=== PATIENT | female | born 1950 | race American Indian/Alaskan Native ===

== ENCOUNTER 2018-07-24 15:48 | Oncology outpatient (ONC) | payer MEDICARE, OTHER, SELFPAY ==
[2018-07-24 16:09] LABS: Add Manual Diff / Slide Review NO; Basophils Percent Auto 1.3 % (0-2); Eosinophils Percent Auto 5.5 % (2-4); Hematocrit 40.7 % (36-46); Hemoglobin 14.1 g/dL (12.0-16.0); Lymphocytes Percent Auto 25.5 % (25-40); Mean Corpuscular HGB Conc 34.6 % (30-36); Mean Corpuscular Hemoglobin 29.9 PG (26-34); Mean Corpuscular Volume 86.4 fL (80-100); Monocytes Percent Auto 7.5 % (3-14); Neutrophils Absolute Auto 4500 /uL (3000-5900); Neutrophils Percent Auto 60.2 % (50-75); Platelet Count 333 X10^3/uL (150-400); Red Blood Cell Count 4.71 X10^6/uL (4.0-5.2); Red Cell Distribution Width 13.6 % (11.6-14.8); White Blood Cell Count 7.5 X10^3/uL (4.5-11.0)
[2018-07-24 16:27] LABS: Alanine Aminotransferase 20 IU/L (9-52); Albumin 4.1 g/dL (3.5-5.0); Albumin Globulin Ratio 1.3 (1.0-2.8); Alkaline Phosphatase 91 U/L (38-126); Aspartate Aminotransferase 23 IU/L (14-36); BUN Creatinine Ratio 18.6 (6-22); Bilirubin Total 0.3 mg/dL (0.2-1.3); Blood Urea Nitrogen 13 mg/dL (7-17); Calcium 9.3 mg/dL (8.4-10.2); Carbon Dioxide 27 mmol/L (22-32); Chloride 106 mmol/L (98-107); Estimated Glomerular Filt Rate > 60.0 mL/min (>60); Globulin 3.1 g/dL (1.7-4.1); Glucose 116 mg/dL (80-110); HEMOLYSIS < 15 (0-50); Potassium 3.6 mmol/L (3.4-5.1); Sodium 144 mmol/L (137-145); Total Protein 7.2 g/dL (6.3-8.2)
[2018-07-24 16:45] VITALS: BP 158/85; PULSE 76; RESP 18; TEMP 36.8
--- NOTE | 2018-07-24 17:31 | ONC.PN ---
PN -Subjective Interval history: Chief complaint 68-year-old female triple positive right breast cancer History of present illness This is my 1st time encounter with Mrs. Jessie Graham, I have reviewed all the medical records both in chart and electronic medical records. And I will summarize her medical history as follows. In 2008, patient noted a palpable left breast mass at 12 o'clock and 1 o'clock. Mammogram on 03/19/2009 showed multiple parenchymal nodules in the left upper central anterior breast, largest 1.7 cm. Ultrasound study on 04/15/2009 showed multiple hypoechoic and solid nodules extending from the retroareolar region to the 11:30 axis 3 cm from the nipple. The largest nodule 2 cm from the nipple was 1.6 x 1.5 x 1.3 cm, the next largest was 1.1 x 0.9 x 1.2 in the subareolar region. Needle biopsy was highly suggestive of infiltrative ductal carcinoma. The axilla was clinically negative. On 05/05/2009, patient underwent left breast lumpectomy and left axillary lymph node dissection. The mass was found to be located from 12:00 to 3:00. Surgical pathology showed invasive moderately differentiated ductal carcinoma and multifocal ductal carcinoma in-situ cribriform and solid types. The tumor consists of one multilobulated mass connected by foci of ductal carcinoma in-situ. And the breast cancer was [place] grade 2/3, maximum size of invasive component 2.5 cm, maximum size of entire tumor was 6.5 cm, without definite vascular or lymphatic invasion, with tumor focally extending to the retroareolar biopsy margin with all other margins negative for malignancy. The cancer cells were positive for estrogen and progesterone receptor and positive for overexpression of her to undergo protein product with intermediate Ki 67 of 48%. It was staged pT2 pN0 Mx. Chemotherapy and radiation treatment were discussed with the patient. However due to family difficulties that her mother had with breast cancer after receiving chemotherapy, patient herself refused to undergo further management. During follow-up she was found to have a local recurrence in the left breast confirmed by needle core biopsy. She then underwent a bone scan which was negative and a CT scan of the chest, abdomen, and pelvis which was negative. The axilla clinically was negative. She herself elected for bilateral mastectomy. On 03/02/2010, patient underwent bilateral mastectomy. The final pathology showed that the left breast invasive ductal carcinoma 1.5 cm grade 3/3 with high-grade ductal carcinoma in-situ. Or and the staging was pT1c NX MX. Right breast was negative for malignancy. It was presumed but not proven that the recurrent breast cancer was ER/AK positive and Her2 positive. The plan at that time was adjuvant weekly doxorubicin 24mg/m2 iv with daily oral cyclophosphamide 60 mg/m2 followed for 12 weeks by weekly paclitaxel 80 mg/m2 for 12 weeks with Herceptin and then endocrine therapy. In April 2010, she was started on weekly doxorubicin 24mg/m2 iv with daily oral cyclophosphamide 60 mg/m2. She was able to completed 12 weeks of AC. Thereafter, patient refused to continue the chemotherapy. Therefore, it was planned to proceed to Herceptin and Arimidex. Unfortunately, her cardiac ejection fraction was only 46.6%, and was 61.25. So it was decided to hold Herceptin. She was then proceeding to Arimidex from 07/27/2010 through 11/02/2010. And she elected to discontinue all the therapy due to poor tolerance. Later, after discussion, she decided to go back on hormone blockade and has been on Letrazole since 09/2012. Clinically, patient has been doing well. Patient tolerated the letrozole extremely well. Patient denies any musculoskeletal pain denies any shortness of breath or chest pain. Denies any abdominal pain diarrhea or constipation. Patient presents here today for re-filling of letrozole. 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 And - Patient Self-Reported Symptoms SR respiratory issues: Cough, Mucous - Additional ROS All systems PM: reviewed and no additional remarkable complaints except as stated Home Medications and Allergies Home Medications Medication Instructions Recorded Confirmed Type [tylenol] 650 mg PRN #0 05/13/13 History alprazolam [Xanax XR] 0.5 mg PO PRN #0 05/13/13 History carvedilol [Coreg] 3.125 mg PO QDAY #0 05/13/13 History lisinopril 2.5 mg PO QDAY #0 05/13/13 History venlafaxine [Effexor XR] 75 mg PO QDAY #0 05/13/13 History zolpidem [Ambien] 10 mg PO HS #0 05/13/13 History letrozole [Femara] 2.5 mg PO QDAY #90 tab 07/24/18 Rx Allergies Allergy/AdvReac Type Severity Reaction Status Date / Time INGREDIENT: NKDA - NO KNOWN Allergy Unknown Uncoded 02/05/18 12:53 DRUG ALLERGIES Exam Vital signs: Last Vital Signs Temp 98.2 F 07/24/18 16:45 Pulse 76 07/24/18 16:45 Resp 18 07/24/18 16:45 BP 158/85 H 07/24/18 16:45 Narrative: ECO Constitutional: Well developed, well nourished, not in any acute respiratory distress, average body habitus, well groomed, pleasant and cooperative. HEENT: Normocephalic atraumatic. Extraocular muscle movement intact. Pupils are round, equal and reactive to light and accommodations. Anicteric sclera. No hearing difficulty; Oral mucus membrane moist and without ulcers. Neck: Supple, symmetrical, and tracheal midline; No palpable thyromegaly and no palpable lymph nodes. Respiratory: No use of accessory muscles. Clear to auscultation, and no wheezes or rales or rubs. Cardiovascular: Regular rate and rhythm, S1 and S2 normal, no murmurs gallops or rubs. No JVD. No pitting edema of lower extremities. Abdomen: Soft, nontender, non-distended, bowel sounds normal, no palpable organomegaly, no hernia, no palpable masses. Lower extremities: No palpable pedal edema. Lymphatic: no palpable lymph nodes in the neck, axillae, or groins. Musculoskeletal: normal gait and station, no clubbing, no cyanosis, no pitting edema. Skin: no rashes, no ulcers, no petechiae Neurological: Awake and alert and oriented x3. CN II-XII grossly intact. No focal motor or sensory deficit. Psychiatric: Good judgment, good insight, normal affect, normal thought process, cooperative, no depression, no anxiety. Breast exam: Both breasts were absent. The surgical wound has healed completely. No palpable nodules noted. No palpable lymph nodes in the axilla bilaterally. All physical examinations were chaperoned. Results - Labs Laboratory Last Values WBC 7.5 X10^3/uL (4.5-11.0) 07/24/18 15:58 RBC 4.71 X10^6/uL (4.0-5.2) 07/24/18 15:58 Hgb 14.1 g/dL (12.0-16.0) 07/24/18 15:58 Hct 40.7 % (36-46) 07/24/18 15:58 MCV 86.4 fL (80-100) 07/24/18 15:58 MCH 29.9 PG (26-34) 07/24/18 15:58 MCHC 34.6 % (30-36) 07/24/18 15:58 RDW 13.6 % (11.6-14.8) 07/24/18 15:58 Plt Count 333 X10^3/uL (150-400) 07/24/18 15:58 Neut % (Auto) 60.2 % (50-75) 07/24/18 15:58 Lymph % (Auto) 25.5 % (25-40) 07/24/18 15:58 [place] % (Auto) 7.5 % (3-14) 07/24/18 15:58 Eos % (Auto) 5.5 % (2-4) H 07/24/18 15:58 Baso % (Auto) 1.3 % (0-2) 07/24/18 15:58 Neut # (Auto) 4500 /uL ([id number]) 07/24/18 15:58 Sodium 144 mmol/L (137-145) 07/24/18 15:58 Potassium 3.6 mmol/L (3.4-5.1) 07/24/18 15:58 Chloride 106 mmol/L (98-107) 07/24/18 15:58 Carbon Dioxide 27 mmol/L (22-32) 07/24/18 15:58 BUN 13 mg/dL (7-17) 07/24/18 15:58 Creatinine 0.70 mg/dL (0.52-1.04) 07/24/18 15:58 Estimated GFR > 60.0 mL/min (>60) 07/24/18 15:58 BUN/Creatinine Ratio 18.6 (6-22) 07/24/18 15:58 Glucose 116 mg/dL (80-110) H 07/24/18 15:58 Calcium 9.3 mg/dL (8.4-10.2) 07/24/18 15:58 Total Bilirubin 0.3 mg/dL (0.2-1.3) 07/24/18 15:58 AST 23 IU/L (14-36) 07/24/18 15:58 ALT 20 IU/L (9-52) 07/24/18 15:58 Alkaline Phosphatase 91 U/L (38-126) 07/24/18 15:58 Total Protein 7.2 g/dL (6.3-8.2) 07/24/18 15:58 Albumin 4.1 g/dL (3.5-5.0) 07/24/18 15:58 Globulin 3.1 g/dL (1.7-4.1) 07/24/18 15:58 Albumin/Globulin Ratio 1.3 (1.0-2.8) 07/24/18 15:58 - Imaging Additional studies: Procedures HEAD SOFT TISS X-RAY NEC (03/30/10) INSERTION OF TOTALLY IMPLANTABLE VASC ACCESS DEVIC (03/30/10) Assessment and Plan (1) Breast cancer, left Up until now patient has received almost 8 years of endocrine therapy after patient completed a partial chemotherapy. Patient had a diagnosis of triple positive left breast cancer. Patient completed only weekly Adriamycin and Cytoxan for about 12 cycles without planned paclitaxel and Herceptin due to decreased cardiac ejection fraction. Today patient came here for refill of letrozole. Patient does not have any new complaints. Patient has tolerated the letrozole extremely well. I talked with the patient given her history of high risk left breast cancer, incomplete adjuvant chemotherapy especially no use of Herceptin, I would recommend that we continue current endocrine therapy for a total of 10 years. Patient voiced understanding. I will have the patient come back in 6 months for follow-up visit.
--- NOTE | 2018-07-24 18:30 | P.PNONC_ITS ---
PN -Subjective Interval history: Chief complaint 68-year-old female triple positive right breast cancer History of present illness This is my 1st time encounter with Mrs. Jessie Graham, I have reviewed all the medical records both in chart and electronic medical records. And I will summarize her medical history as follows. In 2008, patient noted a palpable left breast mass at 12 o'clock and 1 o'clock. Mammogram on 03/19/2009 showed multiple parenchymal nodules in the left upper central anterior breast, largest 1.7 cm. Ultrasound study on 04/15/2009 showed multiple hypoechoic and solid nodules extending from the retroareolar region to the 11:30 axis 3 cm from the nipple. The largest nodule 2 cm from the nipple was 1.6 x 1.5 x 1.3 cm, the next largest was 1.1 x 0.9 x 1.2 in the subareolar region. Needle biopsy was highly suggestive of infiltrative ductal carcinoma. The axilla was clinically negative. On 05/05/2009, patient underwent left breast lumpectomy and left axillary lymph node dissection. The mass was found to be located from 12:00 to 3:00. Surgical pathology showed invasive moderately differentiated ductal carcinoma and multifocal ductal carcinoma in-situ cribriform and solid types. The tumor consists of one multilobulated mass connected by foci of ductal carcinoma in- situ. And the breast cancer was [place] grade 2/3, maximum size of invasive component 2.5 cm, maximum size of entire tumor was 6.5 cm, without definite vascular or lymphatic invasion, with tumor focally extending to the retroareolar biopsy margin with all other margins negative for malignancy. The cancer cells were positive for estrogen and progesterone receptor and positive for overexpression of her to undergo protein product with intermediate Ki 67 of 48%. It was staged pT2 pN0 Mx. Chemotherapy and radiation treatment were discussed with the patient. However due to family difficulties that her mother had with breast cancer after receiving chemotherapy, patient herself refused to undergo further management. During follow-up she was found to have a local recurrence in the left breast confirmed by needle core biopsy. She then underwent a bone scan which was negative and a CT scan of the chest, abdomen, and pelvis which was negative. The axilla clinically was negative. She herself elected for bilateral mastectomy. On 03/02/2010, patient underwent bilateral mastectomy. The final pathology showed that the left breast invasive ductal carcinoma 1.5 cm grade 3/ 3 with high-grade ductal carcinoma in-situ. Or and the staging was pT1c NX MX. Right breast was negative for malignancy. It was presumed but not proven that the recurrent breast cancer was ER/UT positive and Her2 positive. The plan at that time was adjuvant weekly doxorubicin 24mg/m2 iv with daily oral cyclophosphamide 60 mg/m2 followed for 12 weeks by weekly paclitaxel 80 mg/ m2 for 12 weeks with Herceptin and then endocrine therapy. In April 2010, she was started on weekly doxorubicin 24mg/m2 iv with daily oral cyclophosphamide 60 mg/m2. She was able to completed 12 weeks of AC. Thereafter, patient refused to continue the chemotherapy. Therefore, it was planned to proceed to Herceptin and Arimidex. Unfortunately, her cardiac ejection fraction was only 46.6%, and was 61.25. So it was decided to hold Herceptin. She was then proceeding to Arimidex from 07/27/2010 through 11/02/2010. And she elected to discontinue all the therapy due to poor tolerance. Later, after discussion, she decided to go back on hormone blockade and has been on Letrazole since 09/2012. Clinically, patient has been doing well. Patient tolerated the letrozole extremely well. Patient denies any musculoskeletal pain denies any shortness of breath or chest pain. Denies any abdominal pain diarrhea or constipation. Patient presents here today for re-filling of letrozole. 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 And - Patient Self-Reported Symptoms SR respiratory issues: Cough, Mucous - Additional ROS All systems PM: reviewed and no additional remarkable complaints except as stated Home Medications and Allergies Home Medications Medication Instructions Recorded Confirmed Type [tylenol] 650 mg PRN #0 05/13/13 History alprazolam [Xanax XR] 0.5 mg PO PRN #0 05/13/13 History carvedilol [Coreg] 3.125 mg PO QDAY #0 05/13/13 History lisinopril 2.5 mg PO QDAY #0 05/13/13 History venlafaxine [Effexor XR] 75 mg PO QDAY #0 05/13/13 History zolpidem [Ambien] 10 mg PO HS #0 05/13/13 History letrozole [Femara] 2.5 mg PO QDAY #90 tab 07/24/18 Rx Allergies Allergy/AdvReac Type Severity Reaction Status Date / Time INGREDIENT: NKDA - NO KNOWN Allergy Unknown Uncoded 02/05/18 12:53 DRUG ALLERGIES Exam Vital signs: Last Vital Signs Temp 98.2 F 07/24/18 16:45 Pulse 76 07/24/18 16:45 Resp 18 07/24/18 16:45 BP 158/85 H 07/24/18 16:45 Narrative: ECO Constitutional: Well developed, well nourished, not in any acute respiratory distress, average body habitus, well groomed, pleasant and cooperative. HEENT: Normocephalic atraumatic. Extraocular muscle movement intact. Pupils are round, equal and reactive to light and accommodations. Anicteric sclera. No hearing difficulty; Oral mucus membrane moist and without ulcers. Neck: Supple, symmetrical, and tracheal midline; No palpable thyromegaly and no palpable lymph nodes. Respiratory: No use of accessory muscles. Clear to auscultation, and no wheezes or rales or rubs. Cardiovascular: Regular rate and rhythm, S1 and S2 normal, no murmurs gallops or rubs. No JVD. No pitting edema of lower extremities. Abdomen: Soft, nontender, non-distended, bowel sounds normal, no palpable organomegaly, no hernia, no palpable masses. Lower extremities: No palpable pedal edema. Lymphatic: no palpable lymph nodes in the neck, axillae, or groins. Musculoskeletal: normal gait and station, no clubbing, no cyanosis, no pitting edema. Skin: no rashes, no ulcers, no petechiae Neurological: Awake and alert and oriented x3. CN II-XII grossly intact. No focal motor or sensory deficit. Psychiatric: Good judgment, good insight, normal affect, normal thought process , cooperative, no depression, no anxiety. Breast exam: Both breasts were absent. The surgical wound has healed completely. No palpable nodules noted. No palpable lymph nodes in the axilla bilaterally. All physical examinations were chaperoned. Results - Labs Laboratory Last Values WBC 7.5 X10^3/uL (4.5-11.0) 07/24/18 15:58 RBC 4.71 X10^6/uL (4.0-5.2) 07/24/18 15:58 Hgb 14.1 g/dL (12.0-16.0) 07/24/18 15:58 Hct 40.7 % (36-46) 07/24/18 15:58 MCV 86.4 fL (80-100) 07/24/18 15:58 MCH 29.9 PG (26-34) 07/24/18 15:58 MCHC 34.6 % (30-36) 07/24/18 15:58 RDW 13.6 % (11.6-14.8) 07/24/18 15:58 Plt Count 333 X10^3/uL (150-400) 07/24/18 15:58 Neut % (Auto) 60.2 % (50-75) 07/24/18 15:58 Lymph % (Auto) 25.5 % (25-40) 07/24/18 15:58 [place] % (Auto) 7.5 % (3-14) 07/24/18 15:58 Eos % (Auto) 5.5 % (2-4) H 07/24/18 15:58 Baso % (Auto) 1.3 % (0-2) 07/24/18 15:58 Neut # (Auto) 4500 /uL ([id number]) 07/24/18 15:58 Sodium 144 mmol/L (137-145) 07/24/18 15:58 Potassium 3.6 mmol/L (3.4-5.1) 07/24/18 15:58 Chloride 106 mmol/L (98-107) 07/24/18 15:58 Carbon Dioxide 27 mmol/L (22-32) 07/24/18 15:58 BUN 13 mg/dL (7-17) 07/24/18 15:58 Creatinine 0.70 mg/dL (0.52-1.04) 07/24/18 15:58 Estimated GFR > 60.0 mL/min (>60) 07/24/18 15:58 BUN/Creatinine Ratio 18.6 (6-22) 07/24/18 15:58 Glucose 116 mg/dL (80-110) H 07/24/18 15:58 Calcium 9.3 mg/dL (8.4-10.2) 07/24/18 15:58 Total Bilirubin 0.3 mg/dL (0.2-1.3) 07/24/18 15:58 AST 23 IU/L (14-36) 07/24/18 15:58 ALT 20 IU/L (9-52) 07/24/18 15:58 Alkaline Phosphatase 91 U/L (38-126) 07/24/18 15:58 Total Protein 7.2 g/dL (6.3-8.2) 07/24/18 15:58 Albumin 4.1 g/dL (3.5-5.0) 07/24/18 15:58 Globulin 3.1 g/dL (1.7-4.1) 07/24/18 15:58 Albumin/Globulin Ratio 1.3 (1.0-2.8) 07/24/18 15:58 - Imaging Additional studies: Procedures HEAD SOFT TISS X-RAY NEC (03/30/10) INSERTION OF TOTALLY IMPLANTABLE VASC ACCESS DEVIC (03/30/10) Assessment and Plan (1) Breast cancer, left Up until now patient has received almost 8 years of endocrine therapy after patient completed a partial chemotherapy. Patient had a diagnosis of triple positive left breast cancer. Patient completed only weekly Adriamycin and Cytoxan for about 12 cycles without planned paclitaxel and Herceptin due to decreased cardiac ejection fraction. Today patient came here for refill of letrozole. Patient does not have any new complaints. Patient has tolerated the letrozole extremely well. I talked with the patient given her history of high risk left breast cancer, incomplete adjuvant chemotherapy especially no use of Herceptin, I would recommend that we continue current endocrine therapy for a total of 10 years. Patient voiced understanding. I will have the patient come back in 6 months for follow-up visit.
[2018-07-28 08:14] LABS: Cancer Antigen 27.29 < 8 U/mL (< 38)
== END 2018-07-25 12:00 ==
PROVIDERS: PCP Family Medicine; Visit Provider Internal Medicine Hematology & Oncology
DX: C50.912 Malignant neoplasm of unspecified site of left female breast (principal); Z17.0 Estrogen receptor positive status [ER+]; Z79.811 Long term (current) use of aromatase inhibitors; Z86.001 Personal history of in-situ neoplasm of cervix uteri
CPT/HCPCS: 36415; 80053; 85025; 86300; 99215

== ENCOUNTER → 2019-01-22 17:42 | Outpatient (CLI) | payer MEDICARE, OTHER, SELFPAY ==
[2019-01-22 18:14] LABS: Alanine Aminotransferase 28 IU/L (9-52); Albumin 4.2 g/dL (3.5-5.0); Albumin Globulin Ratio 1.4 (1.0-2.8); Alkaline Phosphatase 117 U/L (38-126); Aspartate Aminotransferase 24 IU/L (14-36); BUN Creatinine Ratio 16.3 (6-22); Bilirubin Total 0.3 mg/dL (0.2-1.3); Blood Urea Nitrogen 13 mg/dL (7-17); Calcium 9.5 mg/dL (8.4-10.2); Carbon Dioxide 30 mmol/L (22-32); Chloride 102 mmol/L (98-107); Estimated Glomerular Filt Rate > 60.0 mL/min (>60); Glucose 118 mg/dL (80-110); HEMOLYSIS < 15 (0-50); Potassium 3.9 mmol/L (3.4-5.1); Sodium 142 mmol/L (137-145); Total Protein 7.2 g/dL (6.3-8.2)
[2019-01-22 19:48] LABS: Hematocrit 42.6 % (36-46); Lymphocytes Percent Auto 22.5 % (25-40); Mean Corpuscular HGB Conc 32.9 % (30-36); Mean Corpuscular Hemoglobin 29.2 PG (26-34); Mean Corpuscular Volume 88.7 fL (80-100); Neutrophils Percent Auto 64.7 % (50-75); Platelet Count 374 X10^3/uL (150-400); Red Cell Distribution Width 13.3 % (11.6-14.8); White Blood Cell Count 9.2 X10^3/uL (4.5-11.0)
[2019-01-22 19:49] LABS: Add Manual Diff / Slide Review NO; Basophils Absolute Auto 100 /uL (0-100); Basophils Percent Auto 0.5 % (0-2); Eosinophils Absolute Auto 500 /uL (0-450); Eosinophils Percent Auto 5.6 % (2-4); Lymphocytes Absolute Auto 2100 /uL (1100-4500); Monocytes Absolute Auto 600 /uL (0-900); Monocytes Percent Auto 6.7 % (3-14); Neutrophils Absolute Auto 6000 /uL (1500-7000)
[2019-01-27 16:08] LABS: Cancer Antigen 27.29 < 8 U/mL (< 38)
== END ==
PROVIDERS: PCP Family Medicine; Visit Provider Internal Medicine Hematology & Oncology
DX: C50.912 Malignant neoplasm of unspecified site of left female breast (principal)
CPT/HCPCS: 36415; 80053; 85025; 86300

== ENCOUNTER → 2019-02-06 14:57 | Outpatient (CLI) | payer MEDICARE, OTHER, SELFPAY | PROVIDERS: PCP Family Medicine; Visit Provider Internal Medicine Hematology & Oncology | DX: C50.912 Malignant neoplasm of unspecified site of left female breast (principal) ==

== ENCOUNTER → 2019-08-20 15:00 | Oncology outpatient (ONC) | payer MEDICARE, OTHER, SELFPAY ==
[2019-02-02 16:37] VITALS: BP 142/99; PULSE 76; RESP 18; TEMP 36.7; O2SAT 96
--- NOTE | 2019-02-02 16:40 | ONC.PN ---
PN -Subjective Interval history: 68-year-old white female with history of left breast multifocal triple positive breast cancer diagnosed in 2008 status post lumpectomy without adjuvant radio therapy or chemotherapy. Patient developed left breast local recurrence in 2009 and opted for bilateral mastectomy. Patient completed adjuvant Adriamycin and Cytoxan but not paclitaxel. Due to sub-optimal cardiac ejection fraction, patient did not receive Herceptin. Patient has been on letrozole therapy for almost 8 years. Patient presents here today for scheduled follow-up visit. Patient reports fine good energy. Good appetite. No CP, and no SOB. NO N/V. Due to lactose intolerance, she has had diarrhea after eating ice cream. No blood in the stool or urine. No bone pain. Her weight has increased by about 10 lb. She is now Letrazole 2.5 mg daily. No hot flashes. She is also taking D3, B12 and Zinc. She had BMD scan about 5 years ago. - Additional ROS All systems PM: reviewed and no additional remarkable complaints except as stated Home Medications and Allergies Home Medications Medication Instructions Recorded Confirmed Type [tylenol] 650 mg PRN #0 05/13/13 History alprazolam [Xanax XR] 0.5 mg PO PRN #0 05/13/13 History carvedilol [Coreg] 3.125 mg PO QDAY #0 05/13/13 History lisinopril 2.5 mg PO QDAY #0 05/13/13 History venlafaxine [Effexor XR] 75 mg PO QDAY #0 05/13/13 History zolpidem [Ambien] 10 mg PO HS #0 05/13/13 History letrozole [Femara] 2.5 mg PO QDAY #90 tab 07/24/18 Rx Allergies Allergy/AdvReac Type Severity Reaction Status Date / Time INGREDIENT: NKDA - NO KNOWN Allergy Unknown Uncoded 02/05/18 12:53 DRUG ALLERGIES Exam Vital signs: Vital Signs Temp Pulse Resp BP Pulse Ox 02/02/19 16:37 98.1 F 76 18 142/99 H 96 Intake and Output 02/02/19 02/02/19 02/02/19 07:59 15:59 23:59 Other: Weight 87.3 kg Patient Weight 02/02/19 23:59 Weight 87.3 kg ECOG 1 Narrative: Gen: WD, thin, NAD, pleasant and cooperative, came in by herself. HEENT: NCAT, EOMI, PERRLA, anicteric sclera. Neck: Supple, No palpable thyromegaly or lymphadenopathy. Respiratory: CTAB, no wheezes audible. No JVD Cardiovascular: RRR, S1 and S2 normal, no M/G/R. Abdomen: Soft, NTND, BS normal, no palpable organomegaly Extremities: No LE pitting edema. Lymphatic: no palpable lymph nodes in the neck, axillae, or groins. Neurological: AOx3, CN II-XII grossly intact. No focal motor or sensory deficit. Psychiatric: Good judgment and insight; normal affect; normal thought process; cooperative, no depression, no anxiety. Breast Exams: absent from previous mastecotmy. No palpable masses or nodules in the chest and no palpable lymph nodes in the axilla bilaterally. All physical examinations were chaperoned Results - Labs I reviewed all the lab tests from 01/22/2019. All are within the normal range except glucose level 118. - Imaging Additional studies: Procedures HEAD SOFT TISS X-RAY NEC (03/30/10) INSERTION OF TOTALLY IMPLANTABLE VASC ACCESS DEVIC (03/30/10) Assessment and Plan (1) Breast cancer, left Assessment: Jessie Urbina is a 68 year old female with left breast triple positive multifocal IDC diagnosed in 2008, status post left breast lumpectomy and left axillary lymph node dissection (05/05/2009), staged pT2 pN0 Mx. She refused radiation and chemotherapy because her mother had with breast cancer after receiving chemotherapy. In 2009, she developed a local recurrence in the left breast. She opted and underwent bilateral mastectomies (03/02/2010). Pathlogy showed left breast pT1c Nx Mx. Right breast was negative for malignancy. In April 2010, she was started and was able to complete 12 weeks of weekly doxorubicin 24mg/m2 iv and daily oral cyclophosphamide 60 mg/m2. But she refused to continue the planned 12 weekly paclitaxel. Due to cardiac ejection fraction of only 46.6%, she did not undergo adjuvant Herceptin. Thereafter, she was started on Arimidex from 07/27/2010 through 11/02/2010. She elected to discontinue all the therapy due to poor tolerance. Later, after discussion, she decided to go back on hormone blockade on 09/2012. Overall patient has tolerated very well throughout these years of letrozole. Patient denies any musculoskeletal or arthritic pain. I talked with the patient that prolonged use of letrozole is associated with increased risk of osteoporosis. Patient admitted that her previous bone marrow density evaluation was almost 5 years ago. I talked with the patient that I will repeat a bone mineral density study I will bring her back for discussion of possible therapeutic intervention. Plan: 1. Continue Letrazole 2.5 mg daily 2. DEXA scan 3. RTC 2-3 weeks, to discuss results.
[2019-05-21 13:40] VITALS: BP 138/89; PULSE 84; RESP 16; TEMP 36.8; O2SAT 96
--- NOTE | 2019-05-21 13:50 | P.PNONC_ITS ---
PN -Subjective Interval history: 68-year-old white female with history of left breast multi-focal triple positive breast cancer diagnosed in 2008 status post lumpectomy without adjuvant radiation therapy or chemotherapy. Patient developed left breast local recurrence in 2009 and opted for bilateral mastectomy. Patient completed adjuvant Adriamycin and Cytoxan but not paclitaxel. Due to sub-optimal cardiac ejection fraction, patient did not receive Herceptin. Patient has been on letrozole therapy for almost 8 years. Patient presents here today for scheduled follow-up visit. Patient reports fine good energy. Good appetite. No CP, and no SOB. NO N/V. Due to lactose intolerance, she has had diarrhea after eating ice cream. No blood in the stool or urine. No bone pain. Her weight has increased by about 10 lb. She is now Letrazole 2.5 mg daily. No hot flashes. She is also taking D3, B12 and Zinc. She had BMD scan about 5 years ago. - Patient Self-Reported Symptoms SR ears, nose, mouth, throat issues: Cough SR Gastrointestinal issues: Diarrhea - Additional ROS All systems PM: reviewed and no additional remarkable complaints except as stated Home Medications and Allergies Home Medications Medication Instructions Recorded Confirmed Type [tylenol] 650 mg PRN #0 05/13/13 05/21/19 History alprazolam [Xanax XR] 0.5 mg PO PRN #0 05/13/13 05/21/19 History carvedilol [Coreg] 3.125 mg PO QDAY #0 05/13/13 05/21/19 History lisinopril 2.5 mg PO QDAY #0 05/13/13 05/21/19 History venlafaxine [Effexor XR] 75 mg PO QDAY #0 05/13/13 05/21/19 History zolpidem [Ambien] 10 mg PO HS #0 05/13/13 05/21/19 History letrozole [Femara] 2.5 mg PO QDAY #90 tab 07/24/18 05/21/19 Rx calcium carbonate [Calcium 500] 500 mg PO DAILY 05/21/19 05/21/19 History cholecalciferol (vitamin D3) 1,000 unit PO DAILY 05/21/19 05/21/19 History [Vitamin D3] cyanocobalamin (vitamin B-12) 1,000 mcg PO DAILY 05/21/19 05/21/19 History [Vitamin B-12] zinc 50 mg PO DAILY 05/21/19 05/21/19 History Allergies Allergy/AdvReac Type Severity Reaction Status Date / Time INGREDIENT: NKDA - NO KNOWN Allergy Unknown Uncoded 02/05/18 12:53 DRUG ALLERGIES Exam Vital signs: Vital Signs Temp Pulse Resp BP Pulse Ox 05/21/19 13:40 98.3 F 84 16 138/89 96 Intake and Output 05/20/19 05/21/19 05/21/19 23:59 07:59 15:59 Other: Weight 88 kg Patient Weight 05/21/19 23:59 Weight 88 kg Narrative: Gen: WD, thin, NAD, pleasant and cooperative, came in by herself. HEENT: NCAT, EOMI, PERRLA, anicteric sclera. Neck: Supple, No palpable thyromegaly or lymphadenopathy. Respiratory: CTAB, no wheezes audible. No JVD Cardiovascular: RRR, S1 and S2 normal, no M/G/R. Abdomen: Soft, NTND, BS normal, no palpable organomegaly Extremities: No LE pitting edema. Lymphatic: no palpable lymph nodes in the neck, axillae Neurological: AOx3, CN II-XII grossly intact. No focal motor or sensory deficit. Psychiatric: Good judgment and insight; normal affect; normal thought process; cooperative, no depression, no anxiety. Breast Exams: deferred. Results - Labs Laboratory Last Values WBC Cancelled 01/29/19 11:40 RBC Cancelled 01/29/19 11:40 Hgb Cancelled 01/29/19 11:40 Hct Cancelled 01/29/19 11:40 MCV Cancelled 01/29/19 11:40 MCH Cancelled 01/29/19 11:40 MCHC Cancelled 01/29/19 11:40 RDW Cancelled 01/29/19 11:40 Plt Count Cancelled 01/29/19 11:40 Neut % (Auto) Cancelled 01/29/19 11:40 Lymph % (Auto) Cancelled 01/29/19 11:40 [place] % (Auto) Cancelled 01/29/19 11:40 Eos % (Auto) Cancelled 01/29/19 11:40 Baso % (Auto) Cancelled 01/29/19 11:40 Neut # (Auto) Cancelled 01/29/19 11:40 Lymph # (Auto) Cancelled 01/29/19 11:40 [place] # (Auto) Cancelled 01/29/19 11:40 Eos # (Auto) Cancelled 01/29/19 11:40 Baso # (Auto) Cancelled 01/29/19 11:40 Sodium Cancelled 01/29/19 11:40 Potassium Cancelled 01/29/19 11:40 Chloride Cancelled 01/29/19 11:40 Carbon Dioxide Cancelled 01/29/19 11:40 BUN Cancelled 01/29/19 11:40 Creatinine Cancelled 01/29/19 11:40 Estimated GFR Cancelled 01/29/19 11:40 BUN/Creatinine Ratio Cancelled 01/29/19 11:40 Glucose Cancelled 01/29/19 11:40 Calcium Cancelled 01/29/19 11:40 Total Bilirubin Cancelled 01/29/19 11:40 AST Cancelled 01/29/19 11:40 ALT Cancelled 01/29/19 11:40 Alkaline Phosphatase Cancelled 01/29/19 11:40 Total Protein Cancelled 01/29/19 11:40 Albumin Cancelled 01/29/19 11:40 Globulin Cancelled 01/29/19 11:40 Albumin/Globulin Ratio Cancelled 01/29/19 11:40 CA 27-29 Cancelled 01/29/19 11:40 - Imaging Additional studies: Procedures HEAD SOFT TISS X-RAY NEC (03/30/10) INSERTION OF TOTALLY IMPLANTABLE VASC ACCESS DEVIC (03/30/10) Assessment and Plan (1) Breast cancer, left Overview: Jessie Urbina is a 68 year old female with left breast triple positive multifocal IDC diagnosed in 2008, status post left breast lumpectomy and left axillary lymph node dissection (05/05/2009), staged pT2 pN0 Mx. She refused radiation and chemotherapy because her mother had with breast cancer after receiving chemotherapy. In 2009, she developed a local recurrence in the left breast. She opted and underwent bilateral mastectomies (03/02/2010). Pathology showed left breast pT1c Nx Mx. Right breast was negative for malignancy. In April 2010, she was started and was able to complete 12 weeks of weekly doxorubicin 24mg/m2 iv and daily oral cyclophosphamide 60 mg/m2. But she refused to continue the planned 12 weekly paclitaxel. Due to cardiac ejection fraction of only 46.6%, she did not undergo adjuvant Herceptin. Thereafter, she was started on Arimidex from 07/27/2010 through 11/02/2010. She elected to discontinue all the therapy due to poor tolerance. Later, after discussion, she decided to go back on hormone blockade on 09/2012. Assessment: Overall patient has tolerated very well throughout these years of letrozole. Plan: 1. Start Calcium 600 mg, 2# daily 2. continue Vitamin D 2000 units daily 3. Continue Letrazole 2.5 mg daily 4. RTC in 3 months
[2019-08-20 15:33] VITALS: BP 134/73; PULSE 77; RESP 20; TEMP 36.8; O2SAT 98
--- NOTE | 2019-08-20 15:47 | ONC.PN ---
PN -Subjective Interval history: ID/CC: 69 year old female with breast cancer Oncology History: 69-year-old white female with history of left breast multi-focal triple positive breast cancer diagnosed in 2008 status post lumpectomy without adjuvant radiation therapy or chemotherapy. Patient developed left breast local recurrence in 2009 and opted for bilateral mastectomy. Patient completed adjuvant Adriamycin and Cytoxan but not paclitaxel. Due to sub-optimal cardiac ejection fraction, patient did not receive Herceptin. Patient has been on letrozole therapy for almost 8 years. Patient presents here today for scheduled follow-up visit. Patient reports fine good energy. Good appetite. No CP, and no SOB. NO N/V. Due to lactose intolerance, she has had diarrhea after eating ice cream. No blood in the stool or urine. No bone pain. Her weight has increased by about 10 lb. She is now Letrazole 2.5 mg daily. No hot flashes. She is also taking D3, B12 and Zinc. She had BMD scan about 5 years ago. Interim Events She has been doing well. She walks dogs, and cleans house, She denies any palpable lumps or bumps. She denies abd pain. She has lactose intolerance and has frequent diarrhea. No bone pain. - Patient Self-Reported Symptoms SR ears, nose, mouth, throat issues: Cough SR Gastrointestinal issues: Diarrhea - Additional ROS All systems PM: reviewed and no additional remarkable complaints except as stated Home Medications and Allergies Home Medications Medication Instructions Recorded Confirmed Type [tylenol] 650 mg PRN #0 05/13/13 08/20/19 History alprazolam [Xanax XR] 0.5 mg PO PRN #0 05/13/13 08/20/19 History carvedilol [Coreg] 3.125 mg PO QDAY #0 05/13/13 08/20/19 History lisinopril 2.5 mg PO QDAY #0 05/13/13 08/20/19 History venlafaxine [Effexor XR] 75 mg PO QDAY #0 05/13/13 08/20/19 History zolpidem [Ambien] 10 mg PO HS #0 05/13/13 08/20/19 History calcium carbonate [Calcium 500] 500 mg PO DAILY 05/21/19 08/20/19 History cholecalciferol (vitamin D3) 1,000 unit PO DAILY 05/21/19 08/20/19 History [Vitamin D3] cyanocobalamin (vitamin B-12) 1,000 mcg PO DAILY 05/21/19 08/20/19 History [Vitamin B-12] zinc 50 mg PO DAILY 05/21/19 08/20/19 History letrozole [Femara] 2.5 mg PO QDAY #90 tab 08/20/19 Rx Allergies Allergy/AdvReac Type Severity Reaction Status Date / Time INGREDIENT: NKDA - NO KNOWN Allergy Unknown Uncoded 02/05/18 12:53 DRUG ALLERGIES Exam Vital signs: Vital Signs Temp Pulse Resp BP Pulse Ox 08/20/19 15:33 98.2 F 77 20 134/73 98 Intake and Output 08/19/19 08/20/19 08/20/19 23:59 07:59 15:59 Other: Weight 89.5 kg Patient Weight 08/20/19 23:59 Weight 89.5 kg - Constitutional positive no acute distress, positive cooperative - Routine HEENT Exam Head: Present: normocephalic, atraumatic Eye: Present: EOMI, PERRL, normal accommodation. Absent: conjunctival icterus ENT: Present: mucous membranes moist - Routine Neck Exam Present: supple. Absent: lymphadenopathy, thyromegaly - Routine Chest/Breast/Axilla Exam Comments: Breast exam deferred. - Routine Respiratory Exam Present: Clear to auscultation bilaterally - Routine Cardiovascular Exam Present: RRR, S1, S2. Absent: murmur, gallop, rubs - Routine Abdominal Exam Present: soft. Absent: tenderness, distended, organomegaly - Routine Extremities Exam Absent: edema - Routine Neurological Exam Present: alert, oriented X3, CN II-XII intact. Absent: sensory deficit, motor deficit - Routine Psychiatric Exam Present: normal affect Results - Labs Reviewed. - Imaging Additional studies: Procedures HEAD SOFT TISS X-RAY NEC (03/30/10) INSERTION OF TOTALLY IMPLANTABLE VASC ACCESS DEVIC (03/30/10) Assessment and Plan (1) Breast cancer, left Overview: Jessie Urbina is a 69 year old female with left breast triple positive multi-focal IDC diagnosed in 2008, status post left breast lumpectomy and left axillary lymph node dissection (05/05/2009), staged pT2 pN0 Mx. She refused radiation and chemotherapy because her mother had with breast cancer after receiving chemotherapy. In 2009, she developed a local recurrence in the left breast. She opted and underwent bilateral mastectomies (03/02/2010). Pathology showed left breast pT1c Nx Mx. Right breast was negative for malignancy. In April 2010, she was started and was able to complete 12 weeks of weekly doxorubicin 24mg/m2 iv and daily oral cyclophosphamide 60 mg/m2. But she refused to continue the planned 12 weekly paclitaxel. Due to cardiac ejection fraction of only 46.6%, she did not undergo adjuvant Herceptin. Thereafter, she was started on Arimidex from 07/27/2010 through 11/02/2010. She elected to discontinue all the therapy due to poor tolerance. Later, after discussion, she decided to go back on hormone blockade on 09/2012. Assessment: Overall patient has tolerated very well throughout these years of letrozole. Plan: 1. Start Calcium 600 mg, 2# daily 2. continue Vitamin D 2000 units daily 3. Continue Letrazole 2.5 mg daily 4. RTC in 3 months
--- NOTE | 2020-03-08 10:12 | PC.NURSE ---
LETROZOLE RX FAXED TO [facility].
== END ==
PROVIDERS: PCP Family Medicine; Visit Provider Internal Medicine Hematology & Oncology
DX: C50.912 Malignant neoplasm of unspecified site of left female breast (principal); Z17.0 Estrogen receptor positive status [ER+]; Z79.811 Long term (current) use of aromatase inhibitors
CPT/HCPCS: 99214; 99215

== ENCOUNTER → 2021-07-31 15:14 | Outpatient (CLI) | payer MEDICARE, OTHER, SELFPAY ==
--- NOTE | 2021-07-31 | DI.RAD.S_ITS ---
PROCEDURE: XR CHEST 2V INDICATIONS: COUGH TECHNIQUE: 2 views of the chest were acquired. COMPARISON: [facility], , CHEST 1 VIEW, 03/30/2010, 15:14. FINDINGS: Surgical changes and devices: None. Lungs and pleura: Lungs are clear. No pleural effusions or pneumothorax. Mediastinum: Mediastinal contours are normal. Heart size is enlarged. Bones and chest wall: No suspicious bony abnormalities. Soft tissues appear unremarkable. IMPRESSION: No acute pulmonary process. Dictated by: Eleni Rogers M.D. on 07/31/2021 at 15:56 Approved by: Eleni Rogers M.D. on 07/31/2021 at 15:57
== END ==
PROVIDERS: PCP Family Medicine; Referring Provider Family Medicine; Visit Provider Family Medicine
DX: R05.9 Cough, unspecified (principal)
CPT/HCPCS: 71046

== ENCOUNTER → 2022-06-19 16:05 | Outpatient (CLI) | payer MEDICARE, OTHER, SELFPAY ==
--- NOTE | 2022-06-19 | DI.RAD.S_ITS ---
PROCEDURE: XR CHEST 2V INDICATIONS: PAIN S/P FALL TECHNIQUE: 2 views of the chest were acquired. COMPARISON: [facility], , XR CHEST 2V, 07/31/2021, 15:40. [facility], , CHEST 1 VIEW, 03/30/2010, 15:14. FINDINGS: Surgical changes and devices: Left axillary and breast clips. Right breast clips. Lungs and pleura: Minimal streaky opacity at the left lung base. No pleural effusions or pneumothorax. Mediastinum: Mediastinal contours are normal. Heart size is normal. Bones and chest wall: No suspicious bony abnormalities. Left clavicle segmental fracture. Soft tissues appear unremarkable. IMPRESSION: Minimal streaky opacity at the left lung base. Suspect atelectasis. Left clavicle segmental fracture. Dictated by: Raymon Ceballos M.D. on 06/19/2022 at 17:07 Approved by: Raymon Ceballos M.D. on 06/19/2022 at 17:09
--- NOTE | 2022-06-19 | DI.RAD.S_ITS ---
PROCEDURE: XR CLAVICLE LT INDICATIONS: PAIN S/P FALL TECHNIQUE: 2 views of the clavicle were acquired. COMPARISON: None. FINDINGS: Bones: Segmental left clavicle fracture with fractures at the mid and distal portions. The midportion fracture is apex superior. There is moderate displacement of the distal fracture. The acromioclavicular joint is not widened. No suspicious bony lesions. Soft tissues: No suspicious soft tissue calcifications. IMPRESSION: Segmental left clavicle fracture. Dictated by: Raymon Ceballos M.D. on 06/19/2022 at 17:02 Approved by: Raymon Ceballos M.D. on 06/19/2022 at 17:07
--- NOTE | 2022-06-19 | DI.RAD.S_ITS ---
PROCEDURE: XR KNEE RT 3V INDICATIONS: PAIN S/P FALL TECHNIQUE: 3 views of the knee were acquired. COMPARISON: None. FINDINGS: Bones: No fractures or dislocations. No suspicious bony lesions. Moderate medial lateral compartmental joint space narrowing. Mild patellofemoral space narrowing. No joint effusion. Small lateral marginal osteophytes Soft tissues: No joint effusion. No suspicious soft tissue calcifications. IMPRESSION: Osteoarthritis without fracture Approved by: Chadwick Abrams M.D. on 06/19/2022 at 16:44
--- NOTE | 2022-06-19 | DI.RAD.S_ITS ---
PROCEDURE: XR SHOULDER LT MIN 2V INDICATIONS: PAIN S/P FALL TECHNIQUE: 3 views of the shoulder were acquired. COMPARISON: [facility], CR, XR CLAVICLE LT, 06/19/2022, 16:23. FINDINGS: Bones: Left clavicle segmental fracture. No humeral head fracture or dislocation. No suspicious bony lesions. Visualized ribs appear intact. Soft tissues: No suspicious soft tissue calcifications. Left axillary clips. IMPRESSION: No humeral head fracture or dislocation. Please see separately dictated left clavicle radiographs. Left clavicle fracture. Dictated by: Raymon Ceballos M.D. on 06/19/2022 at 16:58 Approved by: Raymon Ceballos M.D. on 06/19/2022 at 17:02
== END ==
PROVIDERS: PCP Family Medicine; Referring Provider Family Medicine; Visit Provider Family Medicine
DX: S42.002A Fracture of unspecified part of left clavicle, initial encounter for closed fracture (principal); M25.561 Pain in right knee; M17.11 Unilateral primary osteoarthritis, right knee; W17.89XA Other fall from one level to another, initial encounter
CPT/HCPCS: 71046; 73000; 73030; 73562

== ENCOUNTER 2022-06-19 16:41 | Emergency (ER) | payer MEDICARE, OTHER, SELFPAY ==
[2022-06-19 17:01] VITALS: BP 146/96; PULSE 83; RESP 20; TEMP 36.7; O2SAT 97; BMI 36.8
--- NOTE | 2022-06-19 17:13 | PC.NURSE ---
Sling applied in triage
--- NOTE | 2022-06-19 18:49 | ED_ITS ---
HPI - Extremity Injury (Upper) <Bolivar ChavezMAHSA grover - Last Filed: 06/19/22 19:30> General Chief Complaint: Extremity Injury, Upper Stated Complaint: lt shoulder pain Time Seen by Provider: 06/19/22 18:44 Source: patient Mode of arrival: Ambulatory History of Present Illness HPI narrative: 71-year-old female, former smoker, presents emergency department with left clavicle fracture. Patient reports that she fell down 5 steps on , June 14, due to her right knee giving way. Patient denies hitting her head or any loss of consciousness. Patient's family doctor ordered multiple x-rays and with the exception of the fractured clavicle, all others were negative. Patient has been applying hot and cold compresses over the last several days and did not come in to the hospital until she was reprimanded by her daughter. Positive bruising and tenting adjacent to the fracture site. Patient was placed in a sling which slightly improved the pain. Related Data Home Medications Medication Instructions Recorded Confirmed [tylenol] 650 mg PRN ##0 05/13/13 08/20/19 alprazolam 0.5 mg tablet,extended 0.5 mg PO PRN ##0 05/13/13 08/20/19 release 24 hr (Xanax XR) carvedilol 3.125 mg tablet (Coreg) 3.125 mg PO QDAY ##0 05/13/13 08/20/19 lisinopril 2.5 mg tablet 2.5 mg PO QDAY ##0 05/13/13 08/20/19 venlafaxine 75 mg capsule,extended 75 mg PO QDAY ##0 05/13/13 08/20/19 release 24 hr (Effexor XR) zolpidem 10 mg tablet (Ambien) 10 mg PO HS ##0 05/13/13 08/20/19 calcium carbonate 500 mg calcium 500 mg PO DAILY 05/21/19 08/20/19 (1,250 mg) tablet (Calcium 500) cholecalciferol (vitamin D3) 25 1,000 unit PO DAILY 05/21/19 08/20/19 mcg (1,000 unit) tablet (Vitamin D3) cyanocobalamin (vitamin B-12) 1,000 mcg PO DAILY 05/21/19 08/20/19 1,000 mcg tablet (Vitamin B-12) zinc 50 mg tablet 50 mg PO DAILY 05/21/19 08/20/19 Previous Rx's Medication Instructions Recorded letrozole 2.5 mg tablet (Femara) 2.5 mg PO QDAY breast cancer #90 08/20/19 tabs Allergies Allergy/AdvReac Type Severity Reaction Status Date / Time No Known Drug Allergies Allergy Verified 06/19/22 17:06 Review of Systems <MAHSA Erickson - Last Filed: 06/19/22 19:30> Review of Systems Narrative: Narrative: GENERAL: Denies chills, fatigue, fever, sweats. See HPI HEENT: Denies sinus pain, ear pain, sore throat, difficulty swallowing, dizziness. RESPIRATORY: Denies dyspnea, cough, wheezing, sputum. CARDIOVASCULAR: Denies palpitations, edema. GASTROINTESTINAL: Denies nausea, vomiting, abdominal pain, diarrhea, constipation. : Denies dysuria, frequency, incontinence, hematuria, urinary retention, flank pain. MSK: Denies weakness, joint pain. Endorses left upper chest/clavicle pain and bruising. SKIN: Denies rash, skin lesions, or pruritis. NEUROLOGIC: Denies weakness, dizziness, headache, numbness, confusion. PSYCHIATRIC: No concerning psychosocial issues. Patient History <MAHSA Erickson - Last Filed: 06/19/22 19:30> Social History Smoking Status: Former smoker Smoking Status: Former smoker alcohol intake frequency: 0-2 drinks per day Substance Use Type: does not use Exam <MAHSA Erickson - Last Filed: 06/19/22 19:30> Narrative Exam Narrative: Exam Narrative: GENERAL: This is a well-nourished, well-developed patient, in no acute distress HEAD: Atraumatic. Normocephalic. CARDIOVASCULAR: Regular rate and rhythm without murmurs, peripheral pulses intact, cap refill <2 sec. RESPIRATORY: Breath sounds equal and clear bilaterally. No wheezes, rales, or rhonchi. No cough. No increased respiratory effort. No accessory muscle use. MSK: Moves all extremities. Did not move left shoulder due to fractured left clavicle. Neurovascularly intact. NEURO: A&O x 3. SKIN: Warm, dry, no rashes or lesions noted. Bruising noted adjacent to left fractured clavicle. Initial Vital Signs Initial Vital Signs: Vital Signs Temperature 98.1 F 06/19/22 17:01 Pulse Rate 83 06/19/22 17:01 Respiratory Rate 20 06/19/22 17:01 Blood Pressure 146/96 H 06/19/22 17:01 Pulse Oximetry 97 06/19/22 17:01 Oxygen Delivery Method 06/19/22 17:01 Reviewed Extrem Other: SHOULDER: There is bruising, swelling and asymmetry. There is tenderness to palpation over the AC joint.. There is no soft tissue tenderness to palpation. Sensation grossly intact. Passive and active range of motion is limited due to pain. Resistive strength intact. Range of motion of the elbow is normal. The contralateral shoulder exam is unremarkable. <Tesha Medrano MD - Last Filed: 06/20/22 07:59> Initial Vital Signs Initial Vital Signs: Vital Signs Temperature 98.1 F 06/19/22 17:01 Pulse Rate 83 06/19/22 17:01 Respiratory Rate 20 06/19/22 17:01 Blood Pressure 146/96 H 06/19/22 17:01 Pulse Oximetry 97 06/19/22 17:01 Oxygen Delivery Method 06/19/22 17:01 Course <MAHSA Erickson - Last Filed: 06/19/22 19:30> Orders Ordered: Discontinued Medications Oxycodone/Acetaminophen (Oxycodone/Acetaminophen 5/325 Tablet) 1 tab PO NOW ONE Stop: 06/19/22 18:55 Last Admin: 06/19/22 19:03 Dose: 1 tab Documented By: ROSETTE Consultations Consultation #1: Dr. Hair, orthopedics. Recommended patient be placed in a splint and have her follow-up with orthopedic clinic in the morning. Vital Signs Vital signs: Vital Signs - 8 hr 06/19/22 17:01 Temperature 98.1 F Pulse Rate 83 Respiratory Rate 200 H Blood Pressure 146/96 H Pulse Oximetry 97 Oxygen Delivery Method Room Air <Tesha Medrano MD - Last Filed: 06/20/22 07:59> Orders Ordered: Discontinued Medications Oxycodone/Acetaminophen (Oxycodone/Acetaminophen 5/325 Tablet) 1 tab PO NOW ONE Stop: 06/19/22 18:55 Last Admin: 06/19/22 19:03 Dose: 1 tab Documented By: ROSETTE Vital Signs Vital signs: Vital Signs - 8 hr 06/19/22 17:01 Temperature 98.1 F Pulse Rate 83 Respiratory Rate 200 H Blood Pressure 146/96 H Pulse Oximetry 97 Oxygen Delivery Method Room Air MDM - Extremity Injury (Upper) <Bolivar MAHSA Bailey - Last Filed: 06/19/22 19:30> Differential Diagnosis Differential diagnosis: Likely fracture of clavicle Imaging Data Extremity x-ray #1: Radiologist's Impression: [address] [address] XRay Report Signed Patient: Jessie Graham MR#: [id number] : 1950 Acct:[id number] Age/Sex: 71 / F Date of Service: 06/19/22 Loc: DI Accession Number: [id number] ?? Procedure: XR clavicle LT Ordering Provider: Jamal Lozoya MD PROCEDURE:? XR CLAVICLE LT ? INDICATIONS:? PAIN S/P FALL ? TECHNIQUE:? 2 views of the clavicle were acquired.? ? COMPARISON:? None. ? FINDINGS:? ? Bones:? Segmental left clavicle fracture with fractures at the mid and distal portions.? The midportion fracture is apex superior.? There is moderate displacement of the distal fracture.? The acromioclavicular joint is not widened.? No suspicious bony lesions.? ? Soft tissues:? No suspicious soft tissue calcifications.? ? IMPRESSION:? Segmental left clavicle fracture. ? ? Dictated by: Raymon Ceballos M.D. on 06/19/2022 at 17:02 ? ? Approved by: Raymon Ceballos M.D. on 06/19/2022 at 17:07 ? [facility] Narrative Medical decision making narrative: 71-year-old female that presents to the emergency department with a left clavicle fracture. Patient fell this down 5 stairs approximately 6 days ago. Positive bruising, asymmetry and tenting adjacent to the fracture. Contacted Orthopedics, who recommended patient be placed in a splint and have her follow- up with orthopedics in the morning. Percocet given in the ED, but patient reports he is able to control her pain at home with [id number] medication s. Discussed plan of care and return precautions with patient, who was agreeable with course of action. Discharge Plan Departure Patient Disposition: Home Clinical Impression: Fracture of clavicle Instructions: DI for Clavicle Fracture-Adult Activity Restrictions/Additional Instructions: *You have been diagnosed with left clavicle fracture. We have placed you in a splint that should help with your discomfort. You may continue to apply hot or cold compresses to the affected site in use your [id number] medications as needed. Please call the orthopedic clinic tomorrow morning so they can get you in for evaluation this week. For any worsening symptoms that include intolerable pain, difficulty breathing, chest pain, etc. please call 911 or get into the emergency room immediately. Otherwise, please follow-up with your family doctor as needed. *What to do: *Please continue to take your regular medications as directed. [ ] New medication prescriptions sent to your pharmacy: [ ] [ ] New medication written as a paper prescription [x ] No new medications given *Please follow up with your primary care provider in 2-3 days, call for an appointment. Let them know you were seen in the Emergency Department and that we ask that you be seen in follow up. We will electronically transmit a record of today's note if your PCP is in our system *If you do not have a primary care provider please contact the [facility] Resource line at [phone]. They will ask some questions about your medical history and help get you set up with a doctor in the community. ? Return to ER if you should have any new, worsening or concerning symptoms, torre ch as worsening pain, severe headache, confusion, chest pain, difficulty breathing, fever greater than 101 F, shaking chills, persistent vomiting to the point that you cannot drink fluids, or other new or worsening symptoms. Prescriptions: No Action venlafaxine [Effexor XR] 75 MG capsule,extended release 24hr 75 mg PO QDAY Qty: 0 carvedilol [Coreg] 3.125 MG tablet 3.125 mg PO QDAY Qty: 0 zolpidem [Ambien] 10 MG tablet 10 mg PO HS Qty: 0 lisinopril 2.5 MG tablet 2.5 mg PO QDAY Qty: 0 alprazolam [Xanax XR] 0.5 MG tablet extended release 24 hr 0.5 mg PO PRN Qty: 0 [tylenol] 650 mg PRN Qty: 0 cyanocobalamin (vitamin B-12) [Vitamin B-12] 1,000 mcg Tablet 1,000 mcg PO DAILY calcium carbonate [Calcium 500] 500 mg calcium (1,250 mg) Tablet 500 mg PO DAILY Label Comments: PT TO VERIFY DOSE zinc 50 mg Tablet 50 mg PO DAILY cholecalciferol (vitamin D3) [Vitamin D3] 1,000 unit Tablet 1,000 unit PO DAILY letrozole [Femara] 2.5 MG tablet 2.5 mg PO QDAY Qty: 90 1RF Referrals: Jamal Lozoya MD [Primary Care Provider] - Palomo Hair MD [Physician] - Visit Report Forms: Patient Portal/API <Tesha Medrano MD - Last Filed: 06/20/22 07:59> Cosign ED Attending Cosignature Attestation: I was immediately available in the department for consultation throughout this patient's visit. I agree with documentation as above. Tesha Medrano MD
[2022-06-19] MEDS: OXYCODONE/ACETAMINOPHEN 5/325 TABLET 1 TAB PO (19:03)
[2022-06-19 19:50] VITALS: BP 148/78; PULSE 74; RESP 18; O2SAT 100
== END 2022-06-19 19:50 | disposition home or self-care (01) ==
PROVIDERS: Emergency Provider Registered Nurse; PCP Family Medicine
DX: S42.002A Fracture of unspecified part of left clavicle, initial encounter for closed fracture (principal); W10.9XXA Fall (on) (from) unspecified stairs and steps, initial encounter; M25.561 Pain in right knee; M17.11 Unilateral primary osteoarthritis, right knee
CPT/HCPCS: 71046; 73000; 73030; 73562; 99284